=== PATIENT | male | born 1955 | race Caucasian/White ===

== ENCOUNTER 2024-04-15 20:46 | Emergency (ER) | payer MEDICARE, OTHER, SELFPAY ==
[2024-04-15 20:46] VITALS: BMI 29.7
[2024-04-15 20:48] VITALS: BP 174/106
[2024-04-15 21:12] LABS: % Basophils 0.2 % (0-2); % Eosinophils 0.3 % (0-6); % Immature Granulocytes 0.3 % (0-0.5); % Lymphocytes 20.3 % (20.5-51.1); % Monocytes 10.5 % (1.7-9.3); % Neutrophils 68.4 % (42.2-75.2); Absolute Lymphocytes 1.2 10^3/uL (1.2-3.4); Absolute Monocytes 0.6 10^3/uL (0.1-0.6); Hematocrit 43.2 % (39.0-52.0); Hemoglobin 15.5 g/dL (13.0-18.0); Mean Corp Hgb Conc. 35.9 g/dL (33.0-37.0); Mean Corpuscular Hgb 30.4 pg (27.0-31.0); Mean Corpuscular Volume 84.7 fL (80.0-94.0); Mean Platelet Volume 9.5 fL (7.4-10.4); Nucleated Red Blood Cells % 0 % (-); Platelet Count 164 10^3/uL (130-400); Red Cell Dist. Width 12.1 % (11.5-14.5); White Blood Cell Count 5.8 10^3/uL (4.8-10.8)
[2024-04-15 21:29] LABS: ALT (SGPT) 55 U/L (0-50); AST (SGOT) 35 U/L (17-59); Albumin 3.9 g/dl (3.5-5.0); Alkaline Phosphatase 98 U/L (38-126); Blood Urea Nitrogen 19 mg/dl (9-20); Calcium 8.6 mg/dl (8.4-10.2); Carbon Dioxide 25 mmol/L (22-30); Chloride 100 mmol/L (98-107); Glucose 109 mg/dl (70-99); Potassium 3.8 mmol/L (3.5-5.1); Sodium 133 mmol/L (135-145); Total Bilirubin 0.7 mg/dl (0.2-1.3); Total Protein 6.9 g/dl (6.3-8.2); eGFR > 60.00
[2024-04-15 21:33] LABS: NT-proBNP 429 pg/ml
[2024-04-15 23:22] VITALS: BP 165/92
--- NOTE | 2024-04-15 23:55 | ED.GENMED ---
History of Present Illness
General
Chief Complaint: Cough
Source: patient
Exam Limitations: none
Time Seen by Provider: 04/15/24 23:15
History of Present Illness
History of Present Illness:
This is a 68 year old male that comes in with c/o SOB. States that when he is sitting and just getting ready to fall asleep, he awakes with a start is is gasping for air. State that he is very SOB when this happens. States that he just finished a
course of steroid and that when he walks he is SOB. Denies any fever, chills, chest pain, abd pain, nausea, vomiting, diarrhea, headache, dizziness, urinary burning.
Past History
Past History
ED Past Medical History: Asthma, CAD, GERD, HTN, Hypercholesterolemia and UT (X 3)
ED Past Surgical History: Cardiac (stents X 14, , CABG, Angioplasty) and Other (Double hernia)
Social History
Tobacco: Non-smoker
Alcohol: None
Personal:
Living: with family
Review of Systems
Review of Systems
All Other Systems: ROS reviewed and negative except as documented in HPI and ROS
Constitutional: Reports no symptoms; Denies fever or chills
EENT: Reports no symptoms
Respiratory: Reports cough and trouble breathing
Cardiac: Denies chest pain
ABD/GI: Reports no symptoms; Denies abdominal pain, nausea, vomiting or diarrhea
: Reports no symptoms; Denies dysuria, frequency or urgency
Musculoskeletal: Reports no symptoms
Skin: Reports no symptoms
Neurological: Reports no symptoms; Denies dizzy or headache
Psychiatric: Reports no symptoms
Phy Exam
General Physical Exam
General Presentation: no apparent distress
General age: appears stated age
General Skin: warm and dry
General Habitus: normal
General Mental: alert
General Hydration: appears well hydrated
ENT Exam
ENT Exam: TM's normal, pharynx normal and neck supple
Eye Exam
Eye Exam: EOMI
Cardiovascular Exam
Cardiovascular Exam: regular rate/rhythm, no edema and normal peripheral pulses
Pulmonary Exam
Pulmonary Exam: no respiratory distress, no rales, chest non tender, no crackles, no rhonchi and other (Exp wheezing left sided ,Dry cough noted)
Gastrointestinal Exam
Gastrointestinal Exam: normal bowel sounds, non tender, soft, no organomegaly, no pulsatile mass and non distended
Musculoskeletal Exam
Musculoskeletal Exam: full ROM and no edema
Skin Exam
Skin Exam: normal color, warm/dry, no rash and no petechia
Psychiatric Exam
Psychiatric Exam: normal mood/affect
Course
Orders/Labs/Results
Orders:
Orders
04/15/24 20:53
Electrocardiogram (*1) Urgent
Reason for Study: Chest Pain
EKG- Treatment ONCE
CR Chest - 2 Views Urgent
Comment:
Reason For Exam: cough
04/15/24 21:03
Complete Blood Count/With Diff Urgent
Comprehensive Metabolic Panel Urgent
NT-proBNP Urgent
04/15/24 23:55
Troponin I Urgent
04/16/24 01:00
CT Chest PE Study Urgent
Reason For Exam: SOB, cough
04/16/24 01:21
Dexamethasone Sod Phosphate [Decadron] 20 mg IV NOW STA
Ipratropium/Albuterol Sulfate [Duoneb] 3 ml INH R NOW ONE
04/16/24 01:24
Doxycycline [Vibramycin] 100 mg PO NOW STA
Abnormal Lab Results
04/15/24
21:03
Lymphocytes % 20.3 L %
(20.5-51.1)
Monocytes % 10.5 H %
(1.7-9.3)
Sodium 133 L mmol/L
(135-145)
Creatinine 0.6 L mg/dL
(0.7-1.3)
Glucose 109 H mg/dl
(70-99)
ALT 55 H U/L
(0-50)
04/15/24 21:03
04/15/24 21:03
Sodium slightly low. Glucose nonfasting. ALT slightly elevated. Pro-BNP 429, Troponin 0.020
Vital Signs
Initial and Last Documented VS:
Initial Vital Signs
Temp Pulse Resp BP Pulse Ox
98 F 87 20 174/106 97
04/15/24 20:48 04/15/24 20:48 04/15/24 20:48 04/15/24 20:48 04/15/24 20:48
Last Documented Vital Signs
Temp Pulse Resp BP Pulse Ox
98 F 68 11 158/94 100
04/15/24 20:48 04/16/24 01:46 04/16/24 01:45 04/16/24 01:46 04/16/24 01:46
MDM/Problems Addressed
Differential Diagnosis Includes:
PE, Pneumonia, Viral syndrome
MDM/Problems Addressed:
This is a 68 year old male that comes in with c/o cough and SOB. States that ever time he goes to fall asleep he awakes gasping for air. States that he has been coughing and he is SOB with walking.
Will check labs.Get CT chest. Will give Duo neb, Steroids.
Back into see patient. Explained that his CT shows that there is a right upper lobe Pneumonia. Will start patient on antibiotics. Will recheck after breathing treatment.
Patient states that he is feeling better after duo neb. Continues with faint insp and exp wheezing throughout. Will place patient also on a steroid for the next 5 days. Patient to follow up wtih the family doctor in 2-3 days for recheck. Will
discharge home.
Chronic conditions affecting care: CAD and Asthma
Acute Exacerbation and/or Progression of Chronic Illness: CAD and Asthma
*Radiology
Radiology exam reviewed: radiology read reviewed (Chest-NO active cardiopulmonary disease. CT night hawk- Technically adequate bolus. Some motion artifact is present. No pulmonary embolus seen with limited assessment at the level of the
subsegmental arteries. Stent in the left subclavian artery is patent. severe coronary artery calcification,) and all reviewed NAD by ED Provider (CT cont- noral appearacne of the aorta. Bibasilar atelectasis with some groundglass opacity in the
right upper lobe, which could represent infection. Small left pleural effusion with pleural thickening/enhancement. )
*Pulse Oximetry
Patient hypoxic: no
*EKG
Interpreted by ED Provider?: Yes
Heart Rate: 78
Rate: normal
Rhythm: sinus
[place]: normal axis
Interval: normal interval
QRS Pattern: normal QRS
Ischemia: no ischemia
*[place] Interpretation
Rate: normal
Heart Rate: 78
Rhythm: sinus
*Critical Care Note
Total Time (30-74mins, 75-104mins- exclusive of procedures): Not Applicable
ED Attending Note
-
Portions of this chart may have been created with voice recognition software.� Occasional wrong word or��sound alike� substitutions may have occurred due to the inherent limitations of voice recognition software.
Discharge Plan
Departure
Patient Disposition: Home (Routine Discharge)
Date of Disposition: 04/16/24
Time of Disposition: 02:11
Patient with high blood pressure during this ER visit?: Yes
Condition: Good
Covid-19: Not Applicable
Discharge Problem:
Right upper lobe pneumonia
Instructions: Pneumonia, Adult (DC), BLOOD PRESSURE
Prescriptions:
New
doxycycline hyclate 100 mg capsule
100 mg PO BID Qty: 19 0RF
prednisone 20 mg tablet
40 mg PO DAILY Qty: 10 0RF
No Action
losartan 50 MG tablet
100 mg PO HS
clopidogrel 75 MG tablet
75 mg PO HS
aspirin 81 MG tablet,delayed release (DR/EC)
81 mg PO HS
sertraline 50 MG tablet
50 mg PO DAILY
Referrals:
Epifanio Garrett DO [Family Provider] - Follow up in 2-3 days
Activity Restrictions/Additional Instructions:
As discussed, your blood work shows that your Sodium is slightly low. Your CT scan shows that you have a right upper lobe Pneumonia. You have been given a steroid here to help decrease the inflammation and help decrease the cough. You have had a
prescription for a steroid sent to your pharmacy along with a prescription for an antibiotic. Please increase your water intake to 8-8oz glasses daily. Follow up with the family doctor for recheck. IF YOU HAVE INCREASED SHORTNESS OF BREATH, OR HAVE
ANY OTHER CONCERNS PLEASE RETURN TO THE EMERGENCY ROOM.
Interventions
Interventions:
*Risk Screen - Suicide Last Done: 04/15/24 20:48
*General Assessment Last Done: 04/15/24 20:48
*Neglect/Abuse Screening Last Done: 04/15/24 20:48
ED- Fall Risk Assessment Last Done: 04/16/24 01:54
ED- Pulmonary Assessment Last Done: 04/16/24 01:06
Discharge Date and Time
Print Language: CHILEAN
[2024-04-16] VITALS: BP 142/94
[2024-04-16] MEDS: DUONEB 3 ML INH (01:37)
[2024-04-16] MEDS: VIBRAMYCIN 100 MG PO (01:37)
[2024-04-16] MEDS: DECADRON 20 MG IV (01:37)
[2024-04-16 01:46] VITALS: BP 158/94
== END 2024-04-16 02:23 | disposition home or self-care (01) ==
LOC: EMR 20:46
PROVIDERS: Clinical Nurse Specialist Family Health; Emergency Medicine; EMERGENCY PHYSICIAN Emergency Medicine; FAMILY PHYSICIAN Family Medicine
DX: J18.9 Pneumonia, unspecified organism (principal); I10 Essential (primary) hypertension; J45.909 Unspecified asthma, uncomplicated; I25.10 Atherosclerotic heart disease of native coronary artery without angina pectoris
CPT/HCPCS: 99285; 96374; 94640; 71046; 71275; 80053; 83880; 84484; 85025; 93005; Q9967